=== PATIENT | female | born 1985 | race African-American/Black ===

== ENCOUNTER 2018-03-31 02:18 | Emergency (ER) | payer OTHER, MEDICAID ==
[~2018-03-31] VITALS: Ht 177.8 cm; Wt 87.0 kg
[2018-03-31] MEDS ORDERED: LIDOCAINE HCL 1% 20ML VIAL (Pyxis) INJ INFIL ONE (04:30)
[2018-03-31] MEDS ORDERED: LIDOCAINE HCL/PF 1% 10 MG/ML 5ML VIAL IJ NR ×2 (04:45)
[2018-03-31] MEDS ORDERED: ACETAMINOPHEN WITH CODEINE 300/30MG TABLET PO ONE (05:45)
[2018-03-31 05:48] VITALS: BP 112/68
== END 2018-03-31 05:50 | disposition home or self-care (01) ==
LOC: ER 02:18
DX: T16.1XXA Foreign body in right ear, initial encounter (principal); Z98.890 Other specified postprocedural states; X58.XXXA Exposure to other specified factors, initial encounter; Y93.89 Activity, other specified; Y92.018 Other place in single-family (private) house as the place of occurrence of the external cause
CPT/HCPCS: 69200; 99284; J3490